=== PATIENT | female | born 1955 ===

== ENCOUNTER 2019-02-25 05:55 | Day surgery (SDC) | payer OTHER ==
[~2019-02-25 05:55] MED LIST: CLONAZEPAM1 MG PO; CRESTOR10 MG PO; GRALISE600 MG PO; SYNTHROID100 MCG PO; VITAMIN D32000 UNI1 PO; VITAMIN E400 UNI5 PO
[2019-02-25] MEDS ORDERED: POLY119PG PO (08:45)
[2019-02-25] MEDS ORDERED: SURFAK240 M1 PO (08:45)
[2019-02-25] MEDS ORDERED: PERCOCET 5-3251 EACH PO (08:45)
== END 2019-02-25 14:23 | disposition home or self-care (01) ==
LOC: CIR.AMB 05:55
DX: K80.10 Calculus of gallbladder with chronic cholecystitis without obstruction (principal); K42.9 Umbilical hernia without obstruction or gangrene; K43.9 Ventral hernia without obstruction or gangrene